=== PATIENT | male | born 1975 | race African-American/Black ===

== ENCOUNTER 2021-02-04 19:54 | Emergency (ER) | payer SELFPAY ==
[~2021-02-04] VITALS: Ht 185.4 cm; Wt 97.2 kg
[2021-02-04 21:12] VITALS: BP 160/85
[2021-02-04] MEDS: predniSONE 10 MG TABLET PO ONE (22:52)
[2021-02-04] MEDS: LIDOCAINE 2% VISCOUS 15 ML SOLUTION. SWSW ONE (22:52)
[2021-02-04] MEDS ORDERED: AMOX875T PO (23:37)
--- NOTE | 2021-02-04 23:38 | PHYS DOC ---
Past Medical History Past Surgical History: Other Additional Past Surgical Histo: right elbow Smoking Status: Never Smoker Alcohol Use: None General Adult EDM: Chief Complaint: SORE THROAT HPI: HPI: Patient is a 45 year old male patient who presents to the ED today with a sore throat that began today. Patient denies any fever coughing or congestion. Patient is unvaccinated against COVID-19 Review of Systems: Review of Systems: 50 constitutional: Denies fever or chills. [] Eyes: Denies change in visual acuity. [] HENT: reports sore thraot Denies nasal congestion Respiratory: Denies cough or shortness of breath. [] Cardiovascular: Denies chest pain or edema. [] GI: Denies abdominal pain, nausea, vomiting, bloody stools or diarrhea. [] Musculoskeletal: Denies back pain or joint pain. [] Integument: Denies rash. [] Neurologic: Denies headache, focal weakness or sensory changes. [] Psychiatric: Denies depression or anxiety. [] Heart Score: C/O Chest Pain: N/A Risk Factors: Risk Factors: DM, Current or recent (<one month) smoker, HTN, HLP, family history of CAD, obesity. Risk Scores: Score 0 - 3: 2.5% MACE over next 6 weeks - Discharge Home Score 4 - 6: 20.3% MACE over next 6 weeks - Admit for Clinical Observation Score 7 - 10: 72.7% MACE over next 6 weeks - Early Invasive Strategies Current Medications: Current Medications Medications (Trade) Dose Ordered Sig/[facility] Start Time Stop Time Status Last Admin Dose Admin Lidocaine HCl (Viscous Lidocaine) 15 ml 1X ONCE 02/04/21 23:00 02/04/21 23:01 DC 02/04/21 22:52 15 ML Prednisone (Prednisone) 50 mg 1X ONCE 02/04/21 23:00 02/04/21 23:01 DC 02/04/21 22:52 50 MG Allergies: Allergies: Allergies Coded Allergies Type Severity Reaction Last Updated Verified No Known Drug Allergies 02/04/21 No Physical Exam: PE: Constitutional: Well developed, well nourished, no acute distress, non-toxic appearance. [] HENT: Normocephalic, atraumatic, bilateral external ears normal, oropharynx m oist, no oral exudates, nose normal. [] Posterior pharynx with mild erythema, no exudate, +2 anterior cervical adenopathy Eyes: PERRLA, EOMI, conjunctiva normal, no discharge. [] Neck: Normal range of motion, no tenderness, supple, no stridor. [] Cardiovascular:Heart rate regular rhythm, no murmur [] Lungs & Thorax: Bilateral breath sounds clear to auscultation [] Abdomen: Bowel sounds normal, soft, no tenderness, no masses, no pulsatile masses. [] Skin: Warm, dry, no erythema, no rash. [] Back: No tenderness, no CVA tenderness. [] Extremities: No tenderness, no cyanosis, no clubbing, ROM intact, no edema. [] Neurologic: Alert and oriented X 3, normal motor function, normal sensory function, no focal deficits noted. [] Psychologic: Affect normal, judgement normal, mood normal. [] Current Patient Data: Labs: Laboratory Tests Test 02/04/21 22:52 SARS-CoV-2 Antigen (Rapid) Negative (NEGATIVE) Vital Signs: Vital Signs Date Time Temp Pulse Resp B/P (MAP) Pulse Ox O2 Delivery O2 Flow Rate FiO2 02/04/21 21:12 88 20 160/85 (110) 100 Room Air 02/04/21 20:58 99.5 99.5 EKG: EKG: [] Radiology/Procedures: Radiology/Procedures: [] Course & Med Decision Making: Course & Med Decision Making Pertinent Labs and Imaging studies reviewed. (See chart for details) This is a 45-year-old male patient presented to the ED today with a sore throat that began today. Positive rapid strep, negative rapid Covid test. PCR Covid test pending. Discharged on amoxicillin. Dragon Disclaimer: Esthela Disclaimer: This electronic medical record was generated, in whole or in part, using a voice recognition dictation system. Departure Departure Impression: Primary Impression: Person under investigation for COVID-19 Additional Impression: Strep pharyngitis Disposition: HOME / SELF CARE / HOMELESS Condition: STABLE Referrals: NO PCP (PCP) SUNIL MCGINNIS MD follow up in one week Patient Instructions: Strep Throat Additional Instructions: You are positive for strep infection. Take the prescribed antibiotics until completed. Use salt water gargles. Take Tylenol/Motrin as needed for pain or fever. Come back to the ED at any point symptoms worsen. Your PCR Covid test is pending, we will call you with results, quarantine yourself until results are back Scripts Amoxicillin (AMOXICILLIN) 875 Mg Tablet 1 TAB PO BID, #20 TAB Prov: ELMER TAVAREZ APRN 02/04/21 ELMER TAVAREZ APRN Feb 04, 2021 23:38
--- NOTE | 2021-02-05 17:30 | NUR ---
IP: Attempted to contact pt concerning covid results. No answer, left a voicemail to return the call.
--- NOTE | 2021-02-06 16:45 | NUR ---
IP: Attempted second time to contact pt concerning covid results. Another voicemail left to return the call.
== END 2021-02-04 23:51 | disposition home or self-care (01) ==
LOC: ER 19:54
DX: J02.0 Streptococcal pharyngitis (principal); Z20.822 Contact with and (suspected) exposure to COVID-19
CPT/HCPCS: 87426; 87880; 99283; J7512; U0003; U0005